=== PATIENT | male | born 1935 | race Caucasian/White ===

== ENCOUNTER 2019-09-22 08:29 | Outpatient (CLI) | payer MEDICARE, OTHER ==
--- NOTE | 2019-09-22 11:20 | CT ---
CT CHEST AND ABDOMEN WITHOUT IV CONTRAST: Date: 09/22/19 INDICATION: CHF. Palpable abnormal in the left upper abdomen. Site of concern marked with skin marker. No comparison. FINDINGS: The lung diego show no evidence of infiltrate. Tiny bilateral effusions with minimal bibasilar atele ctasis. Mild parenchymal stranding and chronic parenchymal change. There is a 5 mm nodule in the peripheral right lower lobe. There is another 5 mm nodule in the right upper lobe posteriorly near the fissure, seen on image 21 of 59 axial. Mild interstitial thickening i n posterior lower lobes. This may be due to mild interstitial congestion given the history of CHF. There is also a subtle 4 mm nodular density in the left upper lobe seen on image 26 of 59, axial. Mediastinum unremarkable. Nonspecific lymph nodes without adenopathy. Images through the abdomen show calcific densities layering dependently in the gallbladder consistent with numerous small gallstones and/or dense sludge. No pericholecystic edema apparent. There is a small cystic lesion in the spleen measuring 1.5 cm. There is an oblong shaped, somewhat bilobed low density lesion in the anterior left lobe of liver porter suring 1.5 cm in axial plane. There is another indeterminate low density focus in the anterior left l obe of the liver measuring 1.5 cm. Pancreas appears unremarkable. Adrenal glands and kidneys unremarkable. No evidence of urinary tract calculus or hydronephrosis. The visualized small bowel loops are normal caliber. There is prominent diverticula seen in the right colon. Aorta shows atherosclerotic calcification and normal caliber. Review of soft tissues reveals a circumscribed fluid dense collection over the left anterior abdomina l wall within the subcutaneous tissues which corresponds to the palpable abnormality. This measures 2 .5 cm AP dimension x 5.0 cm width in the axial plane. Subcutaneous hematoma or seroma would be consid erations. Abscess is not excluded. Degenerative spine changes. IMPRESSION: 1. Chest CT shows two right side pulmonary nodules which measure up to 5.0 mm and a small left upper lobe nodule measuring in the 4 mm range. Tiny effusions and mild interstitial congestion in the base s. A follow-up chest CT within 6 months is recommended to confirm stability of the pulmonary nodules. 2. Cholelithiasis. 3. Two indeterminate lesions in left lobe of liver. These will need to be followed up. Suggest follo w-up pre and postcontrast CT abdomen to better characterize these left lobe lesions. Metastatic lesio ns cannot be excluded. 4. Small splenic cyst. 5. There is a circumscribed fluid dense collection in the anterior abdominal wall on the left within the subcutaneous tissues anterior to the abdominal wall with measurements given above. Consideration s include hematoma, seroma, and abscess. POS: H
== END 2019-09-22 08:30 | disposition home or self-care (01) ==
LOC: BICCT 08:29
PROVIDERS: ATTEND Internal Medicine
DX: I50.42 Chronic combined systolic (congestive) and diastolic (congestive) heart failure (principal); I25.2 Old myocardial infarction; I25.5 Ischemic cardiomyopathy; Z95.810 Presence of automatic (implantable) cardiac defibrillator; R91.8 Other nonspecific abnormal finding of lung field; K80.20 Calculus of gallbladder without cholecystitis without obstruction; D73.4 Cyst of spleen; K76.9 Liver disease, unspecified
CPT/HCPCS: 71250; 74150